=== PATIENT | male | born 2000 | race Caucasian/White ===

== ENCOUNTER 2019-01-14 14:24 | Inpatient (IN) | payer OTHER ==
[~2019-01-14] VITALS: Ht 170.2 cm; Wt 75.0 kg
[2019-01-14 14:53] LABS: BASOPHILS % (AUTO) 0.7 % (0.0-2.0); EOSINOPHILS % (AUTO) 0.2 % (1.0-6.0); HEMATOCRIT 47.8 % (41-53); HEMOGLOBIN 16.1 g/dL (13.5-17.5); LYMPHOCYTES # (AUTO) 2.1 K/uL (1.0-4.8); LYMPHOCYTES % (AUTO) 25.1 % (22.0-44.0); MEAN CORPUSCULAR HEMOGLOBIN 30.4 pg (26.0-34.0); MEAN CORPUSCULAR HGB CONC 33.6 G/dL (31.0-37.0); MEAN CORPUSCULAR VOLUME 91 fL (80-100); MONOCYTES # (AUTO) 0.8 K/uL (0.1-1.0); MONOCYTES % (AUTO) 9.1 % (2.0-9.0); NEUTROPHILS # (AUTO) 5.5 K/uL (1.8-7.7); NEUTROPHILS % (AUTO) 64.9 % (40.0-70.0); PLATELET COUNT (AUTO) 228 K/uL (150-450); RED BLOOD CELL COUNT(AUTO) 5.28 MIL/uL (4.50-5.90); RED CELL DISTRIBUTION WIDTH 12.8 % (11.5-14.5)
[2019-01-14] MEDS ORDERED: ONDANSETRON HCL 4 MG/2 ML VIAL IVP PRN (15:00)
[2019-01-14] MEDS ORDERED: ACETAMINOPHEN 325 MG TABLET PO PRN ×2 (15:00→15:15)
[2019-01-14 15:08] LABS: ANION GAP 10 mmol/L (8-16); CALCIUM, TOTAL 9.3 mg/dL (8.8-10.5); CARBON DIOXIDE 27 mmol/L (22-29); CHLORIDE 101 mmol/L (98-107); CREATININE 0.85 mg/dL (0.60-1.30); GLOMERULAR FILTR. RATE CALC > 60 mL/min (>60); GLUCOSE,RANDOM 102 mg/dL (70-110); POTASSIUM 3.5 mmol/L (3.5-5.1); SODIUM SERUM 138 mmol/L (136-145); UREA NITROGEN, BLOOD 7 mg/dL (7-18)
[2019-01-14 15:14] LABS: ALANINE AMINOTRANSFERASE 39 U/L (12-78); ALBUMIN 4.3 g/dL (3.4-5.0); ALKALINE PHOSPHATASE 110 U/L (46-116); ASPARTATE AMINOTRANSFERASE 21 U/L (15-37); BILIRUBIN,TOTAL 1.1 mg/dL (0.1-1.0); TOTAL PROTEIN, SERUM 7.4 g/dL (6.4-8.2)
[2019-01-14] MEDS ORDERED: MAGNESIUM HYDROXIDE SUSPENSION 30 ML UDCUP PO PRN (15:15)
[2019-01-14] MEDS ORDERED: SODIUM CHLORIDE 0.9% 1,000 ML IV ONE (15:15)
[2019-01-14 16:35] VITALS: BP 133/74
[2019-01-14 20:59] VITALS: BP 134/80
[2019-01-14 23:33] VITALS: BP 118/75
[2019-01-15 05:06] VITALS: BP 128/78
[2019-01-15 08:28] VITALS: BP 121/59
[2019-01-15 12:03] VITALS: BP 125/67
[2019-01-15 15:35] VITALS: BP 124/71
[2019-01-15 19:55] VITALS: BP 142/79
[2019-01-15 23:23] VITALS: BP 132/91
[2019-01-16] MEDS ORDERED: LORazepam 2 MG/ML VIAL IM ONE ×2 (00:45→01:00)
[2019-01-16] MEDS ORDERED: HALOPERIDOL LACTATE 5 MG/ML VIAL ONE (00:59)
[2019-01-16] MEDS ORDERED: DiphenhydrAMINE HCL 50 MG/ML VIAL ONE (01:00)
[2019-01-16] MEDS ORDERED: DiphenhydrAMINE HCL 50 MG/ML VIAL IM ONE (01:00)
[2019-01-16] MEDS ORDERED: HALOPERIDOL LACTATE 5 MG/ML VIAL IM ONE (01:00)
[2019-01-16 07:47] VITALS: BP 130/72
[2019-01-16 11:42] VITALS: BP 128/70
[2019-01-16 15:20] VITALS: BP 124/64
[2019-01-16 19:43] VITALS: BP 127/77
[2019-01-16] MEDS: OLANZapine 5 MG TABLET PO SCH (20:16)
[2019-01-16 23:12] VITALS: BP 117/63
[2019-01-17 05:10] VITALS: BP 131/52
[2019-01-17 08:12] VITALS: BP 116/64
[2019-01-17 12:12] VITALS: BP 128/80
[2019-01-17 15:43] VITALS: BP 119/71
[2019-01-17 16:05] LABS: AMPHET/METH SCREEN,URINE NEGATIVE (NEGATIVE); BARBITURATE SCREEN, URINE NEGATIVE (NEGATIVE); BENZODIAZEPINES SCREEN,URINE NEGATIVE (NEGATIVE); CANNABINOID SCREEN,URINE NEGATIVE (NEGATIVE); COCAINE SCREEN,URINE NEGATIVE (NEGATIVE); METHADONE SCREEN, URINE NEGATIVE (NEGATIVE); OPIATE SCREEN,URINE NEGATIVE (NEGATIVE); PHENCYCLIDINE SCREEN,URINE NEGATIVE (NEGATIVE)
[2019-01-17 19:29] VITALS: BP 134/81
[2019-01-17] MEDS: OLANZapine 5 MG TABLET PO SCH (20:22)
[2019-01-17] MEDS ORDERED: DiphenhydrAMINE HCL 25 MG CAPSULE PO ONE (21:45)
[2019-01-18 05:04] VITALS: BP 127/79
[2019-01-18 07:29] VITALS: BP 116/65
[2019-01-18 11:40] VITALS: BP 127/72
[2019-01-18 17:03] VITALS: BP 122/78
[2019-01-18 19:33] VITALS: BP 132/80
[2019-01-18] MEDS: OLANZapine 5 MG TABLET PO SCH (19:58)
[2019-01-18 23:23] VITALS: BP 118/61
[2019-01-19 04:40] VITALS: BP 116/69
[2019-01-19 08:05] VITALS: BP 117/68
[2019-01-19 11:20] VITALS: BP 139/79
[2019-01-19] MEDS ORDERED: OLAN10VI3 PO (11:38)
== END 2019-01-19 14:30 | DRG 885 ==
LOC: EMS 14:28 → 6S 16:05
PROVIDERS: ADMIT Internal Medicine; ATTEND Internal Medicine
DX: F29 Unspecified psychosis not due to a substance or known physiological condition (principal); F41.9 Anxiety disorder, unspecified; F43.21 Adjustment disorder with depressed mood
CPT/HCPCS: 80307; G0480; J1200; J1630; J2060